=== PATIENT | male | born 1985 | race Caucasian/White ===

== ENCOUNTER 2019-04-23 20:16 | Emergency (ER) | payer SELFPAY ==
[~2019-04-23] VITALS: Ht 170.2 cm; Wt 120.2 kg
[2019-04-23 20:26] VITALS: BP 120/76; Ht 170.2 cm; Wt 120.2 kg
== END 2019-04-23 23:16 | disposition home or self-care (01) ==
LOC: ED 20:16
DX: R20.2 Paresthesia of skin (principal)